=== PATIENT | female | born 1980 | race Two or more races ===

== ENCOUNTER 2016-11-30 15:52 | Emergency (ER) | payer SELFPAY ==
--- NOTE | 2016-11-30 16:45 | PD ---
HPI Chief Complaint Fall Date Seen: Nov 30, 2016 Time Seen: 16:41 Travel History International Travel<30 Days: No Contact w/Intl Traveler<30Days: No Known Affected Area: No History of Present Illness HPI 36-year-old at 38/2 weeks gestation presenting after a fall. [place] beach today, she slipped in the showers doing a split and falling on her vagina. She denies falling on or otherwise hitting her abdomen. She is not having any abdominal pain, vaginal bleeding, leakage of fluid, but was concerned and wanted the baby to get checked out. No fevers or chills, no chest pain, shortness of breath. No nausea or vomiting. History Past Medical History Medical History: Denies Significant Hx Obstetric History Obstetric History 8 prior pregnancies, 6 prior deliveries, all have been vaginal and uncomplicated Past Surgical History Surgical History: No Previous Surgery Family History Family History: Negative Social History Alcohol Use: No Tobacco Use: No Substance Abuse: No Review of Systems Except as stated in HPI: all other systems reviewed are Neg Physical Exam Narrative GENERAL: Well-nourished, well-developed patient. SKIN: Warm and dry. HEAD: Normocephalic and atraumatic. EYES: No scleral icterus. No injection or drainage. ENT: No nasal drainage noted. Mucous membranes pink. Airway patent. NECK: Supple, trachea midline. No JVD. CARDIOVASCULAR: Regular rate and rhythm without murmurs, gallops, or rubs. RESPIRATORY: Breath sounds equal bilaterally. No accessory muscle use. BREASTS: Bilateral exam showed no masses , no retractions, no nipple discharge. ABDOMEN/GI: Abdomen soft, minimally tender uterine fundus, bowel sounds present , no rebound, no guarding GENITOURINARY: External Genitalia: intact and normal in appearance without bruising FHT's: Category: 1 Baseline: 130 Reactive: Yes Variability: Moderate Decels: None EXTREMITIES: No cyanosis or edema. BACK: Nontender without obvious deformity. NEUROLOGICAL: Awake and alert. Motor and sensory grossly within normal limits. Normal speech. MDM Medical Record Reviewed: Yes Narrative Course / MDM 36-year-old at 38/2 weeks gestation presenting after a fall #1 IUP Category 1 tracing, reassuring - monitoring #2 fall No evidence on history or exam of abdominal trauma, external inspection of the labia reveals no hematoma or bruising - monitoring for 30 minutes; if continuing to be category 1, can be safely discharged home - Pain currently 7 out of 10, patient states that it's fine without medication and she does not want significant the moment - Follow up with [facility] as an outpatient dw Dr. Zapata Diagnosis Diagnosis: Primary Impression: Fall Qualified Code: W19.XXXA - Fall, initial encounter Disposition: DISCHARGE HOME Condition: Good Carroll Shoemaker MD R1 Nov 30, 2016 16:45
== END 2016-11-30 17:02 | disposition home or self-care (01) ==
LOC: HOBED 15:52
DX: O26.93 Pregnancy related conditions, unspecified, third trimester (principal); W01.0XXA Fall on same level from slipping, tripping and stumbling without subsequent striking against object, initial encounter; Y93.E1 Activity, personal bathing and showering; Y92.832 Beach as the place of occurrence of the external cause; Z3A.38 38 weeks gestation of pregnancy
CPT/HCPCS: 99281